=== PATIENT | male | born 1995 | race Caucasian/White ===

== ENCOUNTER 2017-04-27 16:23 | Emergency (ER) | payer BC ==
[~2017-04-27] VITALS: Ht 177.8 cm; Wt 79.7 kg
[2017-04-27 16:26] VITALS: BP 152/91; PULSE 109; TEMP 36.6; O2SAT 99; Ht 177.8 cm; Wt 79.7 kg
[2017-04-27] MEDS ORDERED: FLUT0.15 NAE (16:34)
[2017-04-27] MEDS ORDERED: XYLOCAINE 1%/SOD BICARB 20 ML VIAL INFIL ONE (17:00)
--- NOTE | 2017-04-27 18:28 | EMERGENCY ROOM VISIT NOTE ---
History Report prepared by Romel: Lorena Coyne Under the Supervision of: Dr. Efrain Ramsey M.D. First contact with patient: 16:33 Chief Complaint: LACERATION/CUT (SUT/DERMABOND) Stated Complaint: RT LEG CUT Nursing Triage Summary: Pt states he was box jumping at the gym, slipped and cut his right leg/don. History of Present Illness The patient is a 21 year old male who presents to the Emergency Room with complaints of a sudden cut occurring at 1230 today. The patient states that he was box jumping at the gym, fell, and cut his right don. He states that he is a [employer] so his tetanus shot should be up to date. He denies knee and ankle pain. Source of History: patient Onset: 1230 today Position: leg (right don) Timing: other (sudden ) Note: patient denies: knee pain, ankle pain Review of Systems See HPI for pertinent positives and negatives. A total of six systems were reviewed and were otherwise negative. Past Medical & Surgical Medical Problems: (1) No active medical problems Surgical Problems: (1) H/O wisdom tooth extraction Family History No pertinent family history stated. Social History Smoking Status: Never Smoker Occupation Status: [employer] student Current/Historical Medications Scheduled Fluticasone Propionate (Nasal) (Flonase Allergy Relief), 1 SPRAY NAOMIE DAILY Allergies Coded Allergies: No Known Allergies (Unverified , 04/27/17) Physical Exam Vital Signs Date Time Temp Pulse Resp B/P (MAP) Pulse Ox O2 Delivery O2 Flow Rate FiO2 04/27/17 16:26 36.6 109 19 152/91 99 Room Air Physical Exam GENERAL: Awake, alert, well-appearing, in no distress HENT: Normocephalic, atraumatic. EYES: Normal conjunctiva. Sclera non-icteric. MUSCULOSKELETAL: No joint edema. Large skin avulsion type injury. Associated contusion noted. No bony tenderness. The patient is able to bear weight. No lacerations requiring sutures. No edema. No discoloration. NEURO: Normal sensorium. No sensory or motor deficits noted. SKIN: No rash or jaundice noted. Medical Decision & Procedures ED Course 1700: Ordered Lidocaine HCl 20 ml INH. 1705: The patient was evaluated in room D1. A complete history and physical exam was performed. 1711: I spoke to the patient's father who is a plastic surgeon on the phone regarding the treatment plan for the patient. 1719: I reevaluated the patient. Discussed results and discharge instructions: He verbalized understanding and agreement. The patient is ready for discharge. Medical Decision Triage Nursing notes reviewed. The patient's presentation and history were concerning for soft tissue injury. Etiologies such as soft tissue injury, laceration, fracture, contusion, as well as others were entertained. The patient's evaluation revealed an avulsion type injury without any evidence of bony deformity or significant bony injury warranting x-ray imaging. The patient fortunately does not have a deep wound that would require suturing. This is going to be basically management and it should heal on its own. I did discuss the findings with his father who is a plastic surgeon in [place]. He felt very comfortable with this. Wound dressings were applied. Wound instructions were given to the patient. If he has any signs of infection or problems she will come back to the emergency from for reevaluation. I gave my usual and customary discussion regarding this issue. By the evaluation outlined above other emergent etiologies such as those listed in the differential, as well as others, were deemed relatively unlikely. The patient was educated about the findings as listed above. All questions were answered and the patient was pleased with the treatment. Return instructions were outlined and the patient was discharged in stable condition. Medication Reconcilliation Current Medication List: was personally reviewed by me Blood Pressure Screening Patient's blood pressure: Elevated blood pressure Blood pressure disposition: Elevated BP felt to be situational Impression Primary Impression: Skin avulsion Additional Impression: Open wound of right lower leg Scribe Attestation The scribe's documentation has been prepared under my direction and personally reviewed by me in its entirety. I confirm that the note above accurately reflects all work, treatment, procedures, and medical decision making performed by me. Departure Information Dispostion Home / Self-Care Referrals No Doctor, Assigned (PCP) Forms HOME CARE DOCUMENTATION FORM, IMPORTANT VISIT INFORMATION Patient Instructions [facility] Additional Instructions WOUND CARE INSTRUCTIONS: Bacitracin to wounds once daily. Use a non-stick dressing and Alec wrap as instructed. Change the dressings once a day until healed. Ibuprofen(Motrin, Advil) may be used for fever or pain. Use 600mg every six hours as needed. Take with food. Avoid using more than 2400mg in a 24 hour period. Do not use 2400mg per day for more than three consecutive days without physician direction. Prolonged inappropriate use can lead to stomach upset or ulcers. And/or Tylenol: Take 1000 mg every 6 hours as needed for pain. Do not take more than 3000 mg in a 24 hour period. Ice compresses for 20 minutes at a time four times daily for 2-3 days. Elevate the leg several times daily to minimize swelling today and tomorrow. Apply direct pressure for any bleeding. Avoid heavy sun exposure to that area for the next 6 months as that may cause pigmentation issues. Use sunblock. Return to the ER immediately for spreading redness, fevers, pus-like drainage, severe pain, or as needed. Problem Qualifiers
== END 2017-04-27 17:20 | disposition home or self-care (01) ==
LOC: C.EDB 16:25 → C.EDD 17:20
DX: S81.811A Laceration without foreign body, right lower leg, initial encounter (principal); W19.XXXA Unspecified fall, initial encounter; Y92.39 Other specified sports and athletic area as the place of occurrence of the external cause; Y93.39 Activity, other involving climbing, rappelling and jumping off